=== PATIENT | female | born 1985 | race Caucasian/White ===

== ENCOUNTER 2016-07-30 14:33 | Emergency (ER) | payer OTHER ==
[~2016-07-30] VITALS: Ht 170.2 cm; Wt 100.0 kg
[~2016-07-30 14:33] MED LIST: AMOX875T PO
[2016-07-30] MEDS ORDERED: IBUPROFEN 800 MG TAB PO ONE (16:30)
[2016-07-30] MEDS ORDERED: IBUP800T23 PO (16:32)
--- NOTE | 2016-07-30 16:32 | PD ---
HPI Chief Complaint: Injury Time Seen by Provider: 16:28 Travel History International Travel<30 days: No Contact w/Intl Traveler<30days: No Traveled to known affect area: No History of Present Illness HPI 31-year-old female presents to the emergency Department with complaint of left ankle pain for approximately 3 days now. She states that she stands at work a lot and the other day she twisted wrong injuring the back of her left ankle. She denies paresthesias, loss of sensation, decreased range of motion, decreased strength to the affected extremity. Has been ambulatory on the affected extremity. Has been icing the ankle with no relief of symptoms. She has not taken any medications to alleviate her symptoms. Denies fever, chills, nausea, vomiting. No known allergies. Denies significant past medical history. No other modifying factors or associated signs and symptoms. PFSH Past Medical History Cardiovascular Problems: Yes (PERICARDITIS) Diminished Hearing: No LMP: 06/23/16 : 0 Para: 0 Miscarriage: 0 : 0 Social History Alcohol Use: No Tobacco Use: No Substance Use: No Allergies-Medications (Allergen,Severity, Reaction): Coded Allergies: No Known Allergies (Verified , 07/30/16) Reported Meds & Prescriptions Reported Meds & Active Scripts Active Ibuprofen 800 Mg Tab 800 Mg PO Q6HR PRN Amoxil (Amoxicillin) 875 Mg Tab 875 Mg PO BID 10 Days Review of Systems Except as stated in HPI: all other systems reviewed are Neg Physical Exam Narrative GENERAL: Well-nourished, well-developed female patient, in no acute distress SKIN: Warm and dry. HEAD: Atraumatic. Normocephalic. EYES: Pupils equal and round. No scleral icterus. No injection or drainage. ENT: Mucosa pink and moist. Airway patent. NECK: Trachea midline. CARDIOVASCULAR: Regular rate. RESPIRATORY: No accessory muscle use. GASTROINTESTINAL: Rounded. MUSCULOSKELETAL: Left ankle with tenderness to the posterior aspect; ankle with minimal edema and without erythema or ecchymosis; no obvious deformity. Left lower extremity supple and non-tense with 2+ pedal pulse and sensory intact and without erythema or edema. No obvious deformities. No clubbing. No cyanosis. No edema. NEUROLOGICAL: Awake and alert. Oriented 3. No obvious cranial nerve deficits. Motor grossly within normal limits. Normal speech. PSYCHIATRIC: Appropriate mood and affect; insight and judgment normal. Data Data Last Documented VS Vital Signs Date Time Temp Pulse Resp B/P Pulse Ox O2 Delivery O2 Flow Rate FiO2 07/30/16 16:40 85 18 135/82 96 Room Air Orders Ankle, Complete ([id number]) (07/30/16 16:25) Ibuprofen (Motrin) (07/30/16 16:30) MDM Medical Decision Making Medical Screen Exam Complete: Yes Emergency Medical Condition: Yes Medical Record Reviewed: Yes Differential Diagnosis Ankle sprain, ankle fracture, ankle dislocation Narrative Course 31-year-old female with left ankle injury. Ibuprofen administered in the ER. Left ankle x-ray ordered. 1704: Left ankle x-ray concludes: Last 24 hours Impressions Ankle X-Ray 07/30/16 1625 Signed Impressions: Service Date/Time: Saturday, July 30, 2016 16:34 - CONCLUSION: 1. Mild, diffuse soft tissue prominence about the ankle. No fracture. 2. Small calcaneal spur at the Achilles attachment. Yemi Vazquez MD John bandage and crutches provided for support. Instructed patient to follow up with podiatry. Ibuprofen prescribed for home. Patient verbalizes understanding and agreement with treatment plan. Patient is medically cleared and stable for discharge. Discussed reasons to return to the emergency department. Instructed patient to follow up with primary care provider. Patient agrees with treatment plan. The patients vital signs are stable and the patient is stable for outpatient follow-up and treatment. Patient discharged home, stable and in no acute distress. Diagnosis Primary Impression: Left ankle sprain Qualified Code: S93.402A - Sprain of left ankle, unspecified ligament, initial encounter Additional Impression: Calcaneal spur Qualified Code: M77.32 - Calcaneal spur, left Referrals: International Marketing Intern Primary Care Physician Patient Instructions: Ankle Sprain (ED), Crutch Instructions (ED), General Instructions, Heel Spur (ED) Departure Forms: Tests/Procedures, Work Release Enter return to work date: Aug 01, 2016 Additional Instructions: Tylenol or ibuprofen as directed and as needed for pain and inflammation Rest, ice, compress, and elevate extremity to decrease pain and inflammation Ankle Brace for support Crutches for support Avoid aggravating activity; increase activity as tolerated Follow-up with primary care provider Follow-up with orthopedics as needed Return to the emergency department immediately with worsening symptoms Med/Other Pt SpecificInfo: Prescription(s) given Scripts Ibuprofen 800 Mg [id number] Mg PO Q6HR PRN (PAIN) #30 TAB Ref 0 Prov:Lea Jacobs 07/30/16 Disposition: 01 DISCHARGE HOME Condition: Stable Lea Jacobs Jul 30, 2016 16:32
[2016-07-30 16:40] VITALS: BP 135/82; PULSE 85; RESP 18; O2SAT 96
--- NOTE | 2016-07-30 16:52 | RADRPT ---
EXAM DATE/TIME: 07/30/2016 16:34 [facility] COMPARISON: No previous studies available for comparison. INDICATIONS : Left Ankle Pain after twisting injury, posterior aspect most painful. MEDICAL HISTORY : None. SURGICAL HISTORY : None. ENCOUNTER: Initial ACUITY: 3 days PAIN SCORE: 6/10 LOCATION: Left Ankle. FINDINGS: Three view exam was performed of the left ankle. The bony structures are in normal alignment. No ev idence of fracture or dislocation. Mild soft tissue prominence about the ankle. The ankle mortise is intact. No radiopaque foreign bodies are seen. Bony mineralization is normal. Small calcaneal spur at the Achilles attachment. CONCLUSION: 1. Mild, diffuse soft tissue prominence about the ankle. No fracture. 2. Small calcaneal spur at the Achilles attachment. Yemi Vazquez MD on July 30, 2016 at 16:47 Board Certified Radiologist. This report was verified electronically.
== END 2016-07-30 17:27 | disposition home or self-care (01) ==
LOC: NETRI 14:33
DX: S93.402A Sprain of unspecified ligament of left ankle, initial encounter (principal); M77.32 Calcaneal spur, left foot; X50.1XXA Overexertion from prolonged static or awkward postures, initial encounter; Y93.89 Activity, other specified; Y92.89 Other specified places as the place of occurrence of the external cause; Y99.0 Civilian activity done for income or pay
CPT/HCPCS: 73610; 99283; E0113; L1906

== ENCOUNTER 2016-12-19 19:44 | Inpatient (IN) | payer OTHER ==
[~2016-12-19] VITALS: Ht 170.2 cm; Wt 105.0 kg
[~2016-12-19 19:44] MED LIST changes: +IBUP800T23 PO
[2016-12-19 19:46] VITALS: BP 123/84; PULSE 127; RESP 18; TEMP 101.3; O2SAT 96
[2016-12-19] MEDS ORDERED: ZOFR4TAB PO (19:55)
[2016-12-19 20:10] VITALS: BP 157/90; PULSE 123; RESP 20; TEMP 103; O2SAT 98
[2016-12-19] MEDS ORDERED: ACETAMINOPHEN 325 MG TAB PO ONE (20:15)
[2016-12-19] MEDS ORDERED: ONDANSETRON HCL 4 MG/2 ML VIAL IV ONE (20:15)
[2016-12-19] MEDS ORDERED: SODIUM CHLOR 0.9% 1000 ML INJ 1,000 ML IV ONE ×3 (20:15→23:00)
--- NOTE | 2016-12-19 20:21 | PD ---
HPI Chief Complaint: GI Complaint Time Seen by Provider: 20:03 Travel History International Travel<30 days: No Contact w/Intl Traveler<30days: No Traveled to known affect area: No History of Present Illness HPI The patient is a 31 year old female who presents to the [facility] emergency department with a history of abdominal pain that she reports began 2 weeks ago and was persistent for a week and then seemed to go away up until yesterday when it recurred. She reports that last week she was seen at [facility] [place]. No laboratory studies were done, however the patient was treated with nausea medication. She reports that she did restart this yesterday. She reports that the pain as an aching sensation in the left lower quadrant of the abdomen. She reports that it has been associated with nausea for the last 2 weeks and vomiting that began yesterday. She reports that she's also had intermittent diarrhea for the last 2 weeks. She reports that she had 1 episode of vomiting yesterday and one episode of vomiting today. She reports that she's had diarrhea approximately 4 times per day. She reports that prior to this beginning she did have a clear to milky vaginal discharge that lasted for a day. She denies having a pelvic examination done at the other facility. She reports that she has had an intermittent fever since yesterday. She has not actually checked her temperature and is unsure how high it was right on arrival, however on arrival back to her emergency department that her temp is 103 orally. She denies having any dysuria, urinary frequency, urinary urgency. On review of systems, the patient denies any recent cough, congestion, neck pain, chest pain, shortness of breath, or neurologic symptoms. The patient reports that multiple coworkers have been sick with a "stomach bug,". She denies any foreign travel, antibiotic use over the last 3 months, or unusual food intake. She denies having any blood in her stool or mucus in her stool. LMP: 2 weeks ago. [facility] Past Medical History Narrative Medical The patient's past medical history is significant for pericarditis. Medical History: Denies Significant Hx Cardiovascular Problems: Yes (PERICARDITIS) Diminished Hearing: No Immunizations Current: Yes ?: Unknown : 0 Para: 0 Miscarriage: 0 : 0 Past Surgical History Narrative Surgical The patient's past surgical history is reportedly none. Surgical History: No Previous Surgery Social History Alcohol Use: No Tobacco Use: No Substance Use: No Allergies-Medications (Allergen,Severity, Reaction): Coded Allergies: No Known Allergies (Verified , 12/19/16) Reported Meds & Prescriptions Reported Meds & Active Scripts Active Review of Systems Except as stated in HPI: all other systems reviewed are Neg General / Constitutional: Positive: Fever Eyes: No: Visual changes HENT: No: Headaches, Rhinorrhea, Congestion, Neck Pain Cardiovascular: No: Chest Pain or Discomfort Respiratory: No: Shortness of Breath Gastrointestinal: Positive: Nausea, Vomiting, Diarrhea, Abdominal Pain, Changes in Bowel Habits, No: Hematemesis, Indigestion, Loss of Appetite Genitourinary: Positive: Discharge, No: Urgency, Frequency, Dysuria Musculoskeletal: Positive: Myalgias, No: Pain Skin: No Rash Neurologic: No: Weakness, Focal Abnormalities, Change in Mentation, Slurred Speech, Sensory Disturbance Psychiatric: No: Depression Endocrine: No: Polydipsia Hematologic/Lymphatic: No: Easy Bruising Physical Exam Narrative General: The patient is a well-developed well-nourished female in no acute distress. Head and Neck exam: Head is normocephalic atraumatic. Eyes: EOMI, pupils are equal round and reactive to light. Nose: Midline septum with pink mucous membranes Mouth: Dentition unremarkable. Moist mucus membranes. Posterior oropharynx is not erythematous. No tonsillar hypertrophy. Uvula midline. Airway patent. Neck: No palpable lymphadenopathy. No nuchal rigidity. No thyromegaly. Cardiovascular: Sinus tachycardia in the 120s without murmurs, gallops, or rubs. No pulse deficit to the extremities and simultaneous auscultation and palpation of the radial artery. Lungs: Clear to auscultation bilaterally. No wheezes, rhonchi, or rales. Abdomen: Soft, with tenderness on palpation of the suprapubic area and left lower quadrant of the abdomen. No other tenderness on palpation of the other quadrants of the abdomen. No guarding, rebound, or rigidity. Normal bowel sounds are audible. No tenderness on palpation of McBurney's point. Negative [place] sign. Extremities: No clubbing, cyanosis, or edema. 2+ pulses in all 4 extremities. No calf tenderness on palpation. Back: No costovertebral angle tenderness to palpation. Neurologic Exam: Grossly nonfocal. Skin Exam: No rash noted. Intact skin that is warm and dry. Gynecologic exam: The patient was placed in the dorsal lithotomy position. Her external genitalia were examined. She had no evidence of rash or lesions. The speculum was placed into her vagina and the cervix was identified. She has a clear to yellow vaginal discharge noted with an odor. She has cervical friability noted. On Bimanual exam: she has no cervical motion tenderness. She has left adnexal tenderness on palpation. No uterine tenderness or enlargement noted on palpation. Data Data Last Documented VS Vital Signs Date Time Temp Pulse Resp B/P Pulse Ox O2 Delivery O2 Flow Rate FiO2 12/19/16 21:17 100.9 105 20 98 Room Air 12/19/16 20:10 157/90 Orders Complete Blood Count With Diff (12/19/16 20:12) Comprehensive Metabolic Panel (12/19/16 20:12) Blood Culture (12/19/16 20:12) C-Reactive Protein (Crp) (12/19/16 20:12) Lipase (12/19/16 20:12) Urinalysis - C+S If Indicated (12/19/16 20:12) Magnesium (Mg) (12/19/16 20:12) Chest, Single Ap (12/19/16 20:12) Ct Abd/Pel W Iv Contrast(Rout) (12/19/16 20:12) Iv Access Insert/Monitor (12/19/16 20:12) Ecg Monitoring (12/19/16 20:12) Oximetry (12/19/16 20:12) Ed Urine Pregnancytest Poc (12/19/16 20:12) Lactic Acid Sepsis Protocol (12/19/16 20:12) Sodium Chlor 0.9% 1000 Ml Inj (Ns 1000 M (12/19/16 20:15) Ondansetron Inj (Zofran Inj) (12/19/16 20:15) Acetaminophen (Tylenol) (12/19/16 20:15) Gc And Chlamydia Pcr (12/19/16 20:15) Wet Prep Profile (12/19/16 20:15) Ceftriaxone Inj (Rocephin Inj) (12/19/16 21:15) Azithromycin Powd Pack (Zithromax Powd P (12/19/16 21:15) Sodium Chlor 0.9% 1000 Ml Inj (Ns 1000 M (12/19/16 21:15) Oral Rehydration (12/19/16 21:10) Potassium Chloride Eff (K-Lyte Cl Eff) (12/19/16 21:45) Iohexol 350 Inj (Omnipaque 350 Inj) (12/19/16 21:49) Us Pelvis Comp [employer]or/Non-Preg (12/19/16 22:49) Doxycycline Inj (Vibramycin Inj) (12/19/16 23:00) Ampicillin-Sulbactam Inj (Unasyn Inj) (12/19/16 23:00) Sodium Chlor 0.9% 1000 Ml Inj (Ns 1000 M (12/19/16 23:00) Admit Order (Ed Use Only) (12/19/16 23:15) Labs Laboratory Tests Test 12/19/16 12/19/16 20:30 21:00 White Blood Count 25.9 TH/MM3 Red Blood Count 4.04 MIL/MM3 Hemoglobin 12.2 GM/DL Hematocrit 36.9 % Mean Corpuscular Volume 91.5 FL Mean Corpuscular Hemoglobin 30.3 PG Mean Corpuscular Hemoglobin 33.1 % Concent Red Cell Distribution Width 14.2 % Platelet Count 488 TH/MM3 Mean Platelet Volume 8.2 FL Neutrophils (%) (Auto) 82.4 % Lymphocytes (%) (Auto) 11.3 % Monocytes (%) (Auto) 5.7 % Eosinophils (%) (Auto) 0.1 % Basophils (%) (Auto) 0.5 % Neutrophils # (Auto) 21.4 TH/MM3 Lymphocytes # (Auto) 2.9 TH/MM3 Monocytes # (Auto) 1.5 TH/MM3 Eosinophils # (Auto) 0.0 TH/MM3 Basophils # (Auto) 0.1 TH/MM3 CBC Comment DIFF FINAL Differential Comment Sodium Level 133 MEQ/L Potassium Level 3.0 MEQ/L Chloride Level 97 MEQ/L Carbon Dioxide Level 24.9 MEQ/L Anion Gap 11 MEQ/L Blood Urea Nitrogen 10 MG/DL Creatinine 1.41 MG/DL Estimat Glomerular Filtration 43 ML/MIN Rate Random Glucose 108 MG/DL Lactic Acid Level 2.1 mmol/L Calcium Level 8.9 MG/DL Magnesium Level 2.1 MG/DL Total Bilirubin 1.2 MG/DL Aspartate Amino Transf 11 U/L (AST/SGOT) Alanine Aminotransferase 12 U/L (ALT/SGPT) Alkaline Phosphatase 72 U/L C-Reactive Protein 36.00 MG/DL Total Protein 9.1 GM/DL Albumin 3.5 GM/DL Lipase 49 U/L Clue Cells (Wet Prep) NONE SEEN Vaginal Trichomonas (Wet Prep) NONE SEEN Vaginal Yeast (Wet Prep) NONE SEEN MDM Medical Decision Making Medical Screen Exam Complete: Yes Emergency Medical Condition: Yes Medical Record Reviewed: Yes Interpretation(s) Last Impressions Chest X-Ray 12/19/162011 Signed Impressions: Service Date/Time: Monday, December 19, 2016 20:09 - CONCLUSION: Low lung volumes with mild left lower lung zone atelectasis. Arturo Maldonado MD Abdomen/Pelvis CT 12/19/162011 Signed Impressions: Service Date/Time: Monday, December 19, 2016 21:45 - CONCLUSION: 1. Heterogeneous enlarged left ovary with severe surrounding inflammatory change. Differential diagnosis includes ovarian torsion and infection with tubo- ovarian abscess. This finding could be further evaluated with pelvic ultrasound. 2. Diffuse small bowel distention without transition point likely representing ileus. 3. Hepatic steatosis. 4. Small amount of ascites. Arturo Maldonado MD Differential Diagnosis Pyelonephritis, versus colitis, versus diverticulitis, versus gastroenteritis, versus pelvic inflammatory disease Narrative Course During the course of the patients emergency department visit, the patients history, examination, and differential diagnosis were reviewed with the patient. The patient had IV access obtained and blood work sent for analysis. The patient was placed on a postal support employee with oximetry and blood pressure monitoring. A pelvic examination will be done. The patient was initially provided saline 1 L IV fluid bolus, Zofran 4 mg IV, Tylenol 650 by mouth 1. The patients laboratory studies were reviewed and remarkable for a white count of 25.9, hemoglobin 12.2, platelets 488, neutrophils 82.4. CMP is remarkable for sodium of 133, potassium 3.0 which was supplemented orally, chloride 97, creatinine 1.41, glucose 108, total bilirubin 1.2, AST 11, C-reactive protein 36 , total protein 9.1, lipase 49, lactic acid 2.1, wet prep is negative. Given the patient's findings on her pelvic examination the patient was given Rocephin 1 g IV, Zithromax 1 g by mouth. A wet prep and GC and chlamydia were sent. Radiology studies were reviewed and remarkable for a chest x-ray that shows low lung volumes with mild left lower lung zone atelectasis. CT scan of the abdomen and pelvis shows heterogeneous enlarged left ovary with severe surrounding inflammatory change, differential diagnosis includes ovarian torsion an infection with tubo-ovarian abscess. These findings could be further evaluated with pelvic ultrasound. Diffuse small bowel distention without transition point likely representing ileus, hepatic steatosis, small amount of ascites. An ultrasound was ordered to further evaluate the pelvis. The patient was placed on Unasyn and doxycycline IV. Discussed the patient's case with the [facility] hospitalist, Dr. Grimes. He explained that he was concerned that the patient should be admitted to the intensive care unit. A call was placed out to the film vault supervisor regarding this patient's case. I spoke to recommended that the patient be admitted to the hospitalist service on a medical bed as her heart rate has improved with reduction of her temperature and IV fluid administration and she has not been hypotensive. [facility] He did agree to admit the patient for further evaluation and treatment at this time. The patients results were discussed with the patient, including the plan of care. I explained that further testing and/ or monitoring is indicated based on the patients history, examination, and/ or laboratory findings. Therefore, I recommended admission for additional evaluation. The patient expressed understanding and was agreeable with this plan. The patient was admitted to the hospital in guarded condition and sent to a bed under the [facility]. Critical Care Narrative Aggregate critical care time was 33 minutes. Time to perform other separately billable procedures was not included in the critical care time. My time did not include minutes spent treating any other patients simultaneously or on activities that did not directly contribute to the patient's treatment. The services I provided to this patient were to treat and/or prevent clinically significant deterioration that could result in: Cardiovascular collapse, versus respiratory failure from fluid resuscitation I provided critical care services requiring my management, as noted below: Chart data review, documentation time, medication orders and management, vital sign assessments/reviewing monitor data, ordering and reviewing lab tests, ordering and interpreting/reviewing x-rays and diagnostic studies, care of the patient and discussion of the patient with the admitting physicians. Sepsis Criteria SIRS Criteria (2 or more): Temp > 100.9 or < 96.8, Heart rate over 90, WBC > 96669, < 4000 or > 10% bands Sepsis Criteria (SIRS+source): Infect source susp/known Severe Sepsis (+one): Lactate >2 Criteria Outcome: Meets SIRS criteria, Meets sepsis criteria, Meets severe sepsis criteria Physician Communication Physician Communication The patient's case was discussed with the [facility] as well as the film vault supervisor. Please see the ED course for further information regarding this. Diagnosis Primary Impression: Pelvic infection in female Additional Impression: Sepsis Qualified Code: A41.9 - Sepsis, due to unspecified organism Admitting Information Admitting Physician Requests: Admit Katia Landis MD Dec 19, 2016 20:21
[2016-12-19 20:24] VITALS: O2SAT 98
--- NOTE | 2016-12-19 20:40 | RADRPT ---
EXAM DATE/TIME: 12/19/2016 20:09 [facility] COMPARISON: No previous studies available for comparison. INDICATIONS : Left sided abdominal pain and fever. MEDICAL HISTORY : Pericarditis. SURGICAL HISTORY : None. ENCOUNTER: Initial ACUITY: 2 weeks PAIN SCORE: 4/10 LOCATION: Left abdomen. FINDINGS: Single AP view of the chest. Low lung volumes. Mild atelectasis at the left lung base. The lungs are otherwise clear. Cardiomediastinal silhouette within normal limits. No evidence of pleural effusion o r pneumothorax. CONCLUSION: Low lung volumes with mild left lower lung zone atelectasis. Arturo Maldonado MD on December 19, 2016 at 20:38 Board Certified Radiologist. This report was verified electronically.
[2016-12-19 20:49] LABS: AUTOMATED NEUTROPHIL # 21.4 TH/MM3 (1.8-7.7); BASOPHIL # 0.1 TH/MM3 (0-0.2); BASOPHIL % 0.5 % (0.0-2.0); EOSINOPHIL % 0.1 % (0.0-4.0); HEMATOCRIT 36.9 % (35.0-46.0); HEMO FLAGS DIFF FINAL; LYMPH % 11.3 % (9.0-44.0); LYMPHOCYTE # 2.9 TH/MM3 (1.0-4.8); MEAN CELL VOLUME 91.5 FL (80.0-100.0); MEAN CORPUSCULAR HEMOGLOBIN 30.3 PG (27.0-34.0); MEAN CORPUSCULAR HGB CONC 33.1 % (32.0-36.0); MONO % 5.7 % (0.0-8.0); NEUT % 82.4 % (16.0-70.0); PLATELET COUNT 488 TH/MM3 (150-450); RED BLOOD COUNT 4.04 MIL/MM3 (4.00-5.30); RED CELL DISTRIBUTION WIDTH 14.2 % (11.6-17.2); WHITE BLOOD COUNT 25.9 TH/MM3 (4.0-11.0)
[2016-12-19] MEDS ORDERED: cefTRIAXone INJ 1,000 MG in SODIUM CHLORIDE 0.9% INJ 100 ML IV ONE (21:15)
[2016-12-19] MEDS ORDERED: AZITHROMYCIN PWD FOR SUSP 1 GM PACKET PO ONE (21:15)
[2016-12-19 21:17] VITALS: PULSE 105; RESP 20; TEMP 100.9; O2SAT 98
[2016-12-19 21:28] LABS: ANION GAP 11 MEQ/L (5-15); AST (GOT) 11 U/L (15-37); BICARBONATE 24.9 MEQ/L (21.0-32.0); BLOOD UREA NITROGEN 10 MG/DL (7-18); CHLORIDE 97 MEQ/L (98-107); GLOMERULAR FILTRATION RATE 43 ML/MIN (>89); MAGNESIUM 2.1 MG/DL (1.5-2.5); SODIUM (NA) 133 MEQ/L (136-145)
[2016-12-19 21:37] LABS: ALKALINE PHOSPHATASE 72 U/L (45-117); ALT (GPT) 12 U/L (10-53); TOTAL BILIRUBIN ADULT 1.2 MG/DL (0.2-1.0)
[2016-12-19] MEDS ORDERED: POTASSIUM CHLORIDE 25 MEQ EFFERVESCENT TAB PO ONE (21:45)
[2016-12-19] MEDS ORDERED: IOHEXOL 350 MG/ML 10 ML VIAL (for RAD DIAG) IV ONE (21:49)
--- NOTE | 2016-12-19 22:06 | RADRPT ---
EXAM DATE/TIME: 12/19/2016 21:45 [facility] COMPARISON: No previous studies available for comparison. INDICATIONS : Left sided abdominal pain with nausea, vomiting, diarrhea and fever x1 week. IV CONTRAST: 100 cc Omnipaque 350 (iohexol) IV ORAL CONTRAST: No oral contrast ingested. RADIATION DOSE: 17.56 CTDIvol (mGy) MEDICAL HISTORY : Cardiovascular disease. SURGICAL HISTORY : None. ENCOUNTER: Initial ACUITY: 1 week PAIN SCALE: 9/10 LOCATION: Left abdomen TECHNIQUE: Volumetric scanning of the abdomen and pelvis was performed. Using automated exposure control and ad justment of the mA and/or kV according to patient size, radiation dose was kept as low as reasonably achievable to obtain optimal diagnostic quality images. DICOM format image data is available electro nically for review and comparison. FINDINGS: LOWER LUNGS: The visualized lower lungs are clear. LIVER: Diffuse hypodensity of the liver indicating diffuse fatty infiltration. No focal mass identified. Gal lbladder within normal limits. SPLEEN: Normal size without lesion. PANCREAS: KIDNEYS: Normal in size and shape. There is no mass, stone or hydronephrosis. ADRENAL GLANDS: Within normal limits. VASCULAR: There is no aortic aneurysm. BOWEL/MESENTERY: There is diffuse distention of small bowel and stomach with multiple air-fluid levels. No transition point. Colon is decompressed. Appendix within normal limits. ABDOMINAL WALL: Within normal limits. RETROPERITONEUM: There is no lymphadenopathy. BLADDER: Diffuse mild urinary bladder wall thickening. REPRODUCTIVE: Heterogeneous enlarged mixed density left adnexal mass likely representing the left ovary, measuring 6.0 x 4.6 x 3.9 cm. Severe surrounding stranding/haziness of the pelvis and left lower quadrant of th e abdomen centered at the left adnexal region small amount of free fluid adjacent to liver. INGUINAL: There is no lymphadenopathy or hernia. MUSCULOSKELETAL: Within normal limits for patient age. CONCLUSION: 1. Heterogeneous enlarged left ovary with severe surrounding inflammatory change. Differential diagno sis includes ovarian torsion and infection with tubo-ovarian abscess. This finding could be further e valuated with pelvic ultrasound. 2. Diffuse small bowel distention without transition point likely representing ileus. 3. Hepatic steatosis. 4. Small amount of ascites. Arturo Maldonado MD on December 19, 2016 at 21:54 Board Certified Radiologist. This report was verified electronically.
[2016-12-19 22:40] LABS: LACTIC ACID GHOST NOT REPORTABLE
[2016-12-19] MEDS ORDERED: DOXYCYCLINE INJ 100 MG in SODIUM CHLORIDE 0.9% INJ 100 ML IV ONE (23:00)
[2016-12-19] MEDS ORDERED: AMPICILLIN-SULBACTAM INJ 3 GM in SODIUM CHLORIDE 0.9% INJ 100 ML IV ONE (23:00)
--- NOTE | 2016-12-19 23:30 | HHI.HP ---
HPI Service [facility] Hospitalists Primary Care Physician Kesha Andrade MD Admission Diagnosis Pelvic infection, sepsis Chief Complaint: progressive abdominal pain fever for 2 weeks Travel History International Travel<30 Days: No Contact w/Intl Traveler <30 Da: No Traveled to Known Affected Are: No Sepsis Criteria SIRS Criteria (2 or more): Temp > 100.9 or < 96.8, Heart rate over 90, WBC > 53917, < 4000 or > 10% bands Severe Sepsis (+one): Lactate >2 History of Present Illness The patient is a 31 year old female who presents to the [facility] emergency department with a history of abdominal pain that she reports began 2 weeks ago and was persistent for a week and then seemed to go away up until yesterday when it recurred. She reports that last week she was seen at [facility] [place]. No laboratory studies were done, however the patient was treated with nausea medication. She reports that she did restart this yesterday. She reports that the pain as an aching sensation in the left lower quadrant of the abdomen. She reports that it has been associated with nausea for the last 2 weeks and vomiting that began yesterday. She reports that she's also had intermittent diarrhea for the last 2 weeks. She reports that she had 1 episode of vomiting yesterday and one episode of vomiting today. She reports that she's had diarrhea approximately 4 times per day. She reports that prior to this beginning she did have a clear to milky vaginal discharge that lasted for a day. She denies having a pelvic examination done at the other facility. She reports that she has had an intermittent fever since yesterday. She has not actually checked her temperature and is unsure how high it was right on arrival, however on arrival back to emergency department that her temp is 103 orally. She denies having any dysuria, urinary frequency, urinary urgency. On review of systems, the patient denies any recent cough, congestion, neck pain, chest pain, shortness of breath, or neurologic symptoms. The patient reports that multiple coworkers have been sick with a "stomach bug,". She denies any foreign travel, antibiotic use over the last 3 months, or unusual food intake. She denies having any blood in her stool or mucus in her stool. In er had CT abdomen suggesting pelvic infection with possible abscess and does have increased WBC count will admit for IV antibiotics and CARGO SERVICE AGENT evaluation . Obtain ultrasound. LMP: 2 weeks ago. Review of Systems Constitutional: COMPLAINS OF: Fever Gastrointestinal: COMPLAINS OF: Abdominal pain, Nausea, Vomiting Past Family Social History Past Medical History pericarditis Past Surgical History none Reported Medications motrin zofran Allergies: Coded Allergies: No Known Allergies (Verified , 12/19/16) Physical Exam Vital Signs Vital Signs Date Time Temp Pulse Resp B/P Pulse Ox O2 Delivery O2 Flow Rate FiO2 12/19/16 21:17 100.9 105 20 98 Room Air 12/19/16 20:24 98 Room Air 12/19/16 20:10 103.0 123 20 157/90 98 Room Air 12/19/16 19:46 101.3 127 18 123/84 96 Room Air Physical Exam GENERAL: This is a well-nourished, well-developed patient, in no apparent distress. SKIN: No rashes, ecchymoses or lesions. Cool and dry. HEAD: Atraumatic. Normocephalic. No temporal or scalp tenderness. EYES: Pupils equal round and reactive. Extraocular motions intact. No scleral icterus. No injection or drainage. ENT: Nose without bleeding, purulent drainage or septal hematoma. Throat without erythema, tonsillar hypertrophy or exudate. Uvula midline. Airway patent. NECK: Trachea midline. No JVD or lymphadenopathy. Supple, nontender, no meningeal signs. CARDIOVASCULAR: Regular rate and rhythm without murmurs, gallops, or rubs. RESPIRATORY: Clear to auscultation. Breath sounds equal bilaterally. No wheezes , rales, or rhonchi. GASTROINTESTINAL: Abdomen soft, tender, mid and left lower quadrant. No hepato- splenomegaly, or palpable masses. guarding no rebound MUSCULOSKELETAL: Extremities without clubbing, cyanosis, or edema. No joint tenderness, effusion, or edema noted. No calf tenderness. Negative Homans sign bilaterally. NEUROLOGICAL: Awake and alert. Cranial nerves II through XII intact. Motor and sensory grossly within normal limits. Five out of 5 muscle strength in all muscle groups. Normal speech. Laboratory Laboratory Tests Test 12/19/16 12/19/16 20:30 21:00 White Blood Count 25.9 Red Blood Count 4.04 Hemoglobin 12.2 Hematocrit 36.9 Mean Corpuscular Volume 91.5 Mean Corpuscular Hemoglobin 30.3 Mean Corpuscular Hemoglobin 33.1 Concent Red Cell Distribution Width 14.2 Platelet Count 488 Mean Platelet Volume 8.2 Neutrophils (%) (Auto) 82.4 Lymphocytes (%) (Auto) 11.3 Monocytes (%) (Auto) 5.7 Eosinophils (%) (Auto) 0.1 Basophils (%) (Auto) 0.5 Neutrophils # (Auto) 21.4 Lymphocytes # (Auto) 2.9 Monocytes # (Auto) 1.5 Eosinophils # (Auto) 0.0 Basophils # (Auto) 0.1 CBC Comment DIFF FINAL Differential Comment Sodium Level 133 Potassium Level 3.0 Chloride Level 97 Carbon Dioxide Level 24.9 Anion Gap 11 Blood Urea Nitrogen 10 Creatinine 1.41 Estimat Glomerular Filtration 43 Rate Random Glucose 108 Lactic Acid Level 2.1 Calcium Level 8.9 Magnesium Level 2.1 Total Bilirubin 1.2 Aspartate Amino Transf 11 (AST/SGOT) Alanine Aminotransferase 12 (ALT/SGPT) Alkaline Phosphatase 72 C-Reactive Protein 36.00 Total Protein 9.1 Albumin 3.5 Lipase 49 Clue Cells (Wet Prep) NONE SEEN Vaginal Trichomonas (Wet Prep) NONE SEEN Vaginal Yeast (Wet Prep) NONE SEEN Date/Time Procedure Status Source Growth 12/19/16 20:30 Aerobic Blood Culture Received Blood Peripheral Pending 12/19/16 20:30 Anaerobic Blood Culture Received Blood Peripheral Pending Result Diagram: 12/19/16202912/19/162029 Imaging Last 24 hours Impressions Chest X-Ray 12/19/162011 Signed Impressions: Service Date/Time: Monday, December 19, 2016 20:09 - CONCLUSION: Low lung volumes with mild left lower lung zone atelectasis. Arturo Maldonado MD Abdomen/Pelvis CT 12/19/162011 Signed Impressions: Service Date/Time: Monday, December 19, 2016 21:45 - CONCLUSION: 1. Heterogeneous enlarged left ovary with severe surrounding inflammatory change. Differential diagnosis includes ovarian torsion and infection with tubo- ovarian abscess. This finding could be further evaluated with pelvic ultrasound. 2. Diffuse small bowel distention without transition point likely representing ileus. 3. Hepatic steatosis. 4. Small amount of ascites. Arturo Maldonado MD Course in er had pelvic exam- The patient was placed in the dorsal lithotomy position. Her external genitalia were examined. She had no evidence of rash or lesions. The speculum was placed into her vagina and the cervix was identified. She has a clear to yellow vaginal discharge noted with an odor. She has cervical friability noted. On Bimanual exam: she has no cervical motion tenderness. She has left adnexal tenderness on palpation. No uterine tenderness or enlargement noted on palpation. Assessment and Plan Problem List: (1) Sepsis Status: Acute Plan: blood cultures obtained and started on unasyn IV and IV doxycline IV fluid (2) Pelvic infection in female Status: Acute Plan: await ultrasound and consult [employer] SERVICE AGENT Assessment and Plan further plan as per ultrasound Code Status full Discussed Condition With patient Physician Certification 2 Midnight Certification Type: Admission for Inpatient Services Order for Inpatient Services The services are ordered in accordance with Medicare regulations or non- Medicare payer requirements, as applicable. In the case of services not specified as inpatient-only, they are appropriately provided as inpatient services in accordance with the 2-midnight benchmark. Estimated LOS (days): 3 3 days is the estimated time the patient will need to remain in the hospital, assuming treatment plan goals are met and no additional complications. Post-Hospital Plan: Not yet determined Lauri Hodge MD Dec 19, 2016 23:30
[2016-12-19] MEDS ORDERED: SODIUM CHLOR 0.45% 1000 ML INJ 1,000 ML IV SCH (23:33)
[2016-12-19] MEDS ORDERED: SENNOSIDES 8.6 MG TAB PO PRN (23:45)
[2016-12-19] MEDS ORDERED: BISACODYL 10 MG SUPP RECTAL PRN (23:45)
[2016-12-19] MEDS ORDERED: SODIUM CHLORIDE 0.9% FLUSH 10 ML FLUSH IV FLUSH PRN (23:45)
[2016-12-19] MEDS ORDERED: LACTULOSE SYRUP 20 GM/30 ML CUP PO PRN (23:45)
[2016-12-19] MEDS ORDERED: NALOXONE HCL 0.4 MG/ML AMP IV PRN (23:45)
[2016-12-19] MEDS ORDERED: MAGNESIUM HYDROXIDE SUSP 30 ML CUP PO PRN (23:45)
[2016-12-20 00:07] LABS: CHLAMYDIA PCR NOT DETECTED (NOT DETECT); NEISSERIA PCR DETECTED (NOT DETECT)
[2016-12-20 01:11] LABS: BACTERIA, URINE RARE /hpf; BLOOD, URINE MOD (NEG); COMMENT (UR) CULTURE INDICATED; CULTURE IF INDICATED CULTURE INDICATED; GLUCOSE,URINE NEG (NEG); KETONE, URINE NEG (NEG); NITRITE,URINE NEG (NEG); PH, URINE 5.5 (5.0-8.5); SQUAMOUS EPITHELIAL CELL URINE 1 /hpf (0-5); URINE COLOR YELLOW (YELLW/STRAW)
[2016-12-20 01:32] VITALS: BP 108/67; PULSE 74; RESP 19; TEMP 97.3; O2SAT 98
--- NOTE | 2016-12-20 01:36 | RADRPT ---
EXAM DATE/TIME: 12/20/2016 00:09 [place] COMPARISON: No previous studies available for comparison. INDICATIONS : Pelvic pain. MEDICAL HISTORY : Pericarditis. Nausea/vomiting. Left pelvic pain. SURGICAL HISTORY : None. ENCOUNTER: Initial ACUITY: 2 weeks PAIN SCORE: 9/10 LOCATION: Bilateral pelvis MEASUREMENTS: LEFT OVARY: 3.2 x 2.0 x 1.6 cm UTERUS: 6.2 x 3.4 x 2.0 cm ENDOMETRIAL STRIPE: 5 mm RIGHT OVARY: 2.6 x 1.9 x 1.4 cm FINDINGS: UTERUS: The myometrium has homogeneous echotexture without mass. RIGHT OVARY: Ovary contains no mass or significant cystic lesion. LEFT OVARY: Ovary contains no mass or significant cystic lesion. In the left adnexa, medial to the ovary, there i s an irregular shaped mildly hypoechoic non-shadowing area measuring 6.2 x 3.3 cm. No increased flow seen on color Doppler. This of uncertain significance. MISCELLANEOUS: There is a prominent amount of free fluid in the pelvis. In addition, there is an oval-shaped cystic area containing multiple thin internal septa in the region of the cul-de-sac measuring 2.4 x 3.6 x 1 .4 cm. No increased flow seen on color Doppler. CONCLUSION: 1. Significant amount of free fluid in the pelvis. 2. Cystic lesion in the cul-de-sac measuring up to 3.6 cm containing internal septa. 3. Low-density lesion without increased flow on color Doppler, probably cystic, in the left adnexa, s eparate from the ovary, measuring 6.2 x 4.6 cm. Geovanny Bolanos MD on December 20, 2016 at 1:29 Board Certified Radiologist. This report was verified electronically.
[2016-12-20] MEDS: HYDROmorphone HCL PF 1 MG/ML VIAL IV PRN ×3 (01:50→21:44)
[2016-12-20] MEDS: AMPICILLIN-SULBACTAM INJ 3 GM in SODIUM CHLORIDE 0.9% INJ 100 ML IV SCH ×2 (05:04→11:24)
[2016-12-20] MEDS: ONDANSETRON HCL 4 MG/2 ML VIAL IVP PRN ×3 (05:08→20:06)
[2016-12-20 07:20] LABS: AUTOMATED NEUTROPHIL # 18.4 TH/MM3 (1.8-7.7); BASOPHIL # 0.1 TH/MM3 (0-0.2); BASOPHIL % 0.5 % (0.0-2.0); EOSINOPHIL % 0.1 % (0.0-4.0); HEMATOCRIT 31.5 % (35.0-46.0); HEMO FLAGS DIFF FINAL; LYMPH % 8.1 % (9.0-44.0); LYMPHOCYTE # 1.8 TH/MM3 (1.0-4.8); MEAN CELL VOLUME 91.3 FL (80.0-100.0); MEAN CORPUSCULAR HEMOGLOBIN 30.9 PG (27.0-34.0); MEAN CORPUSCULAR HGB CONC 33.8 % (32.0-36.0); MONO % 7.5 % (0.0-8.0); NEUT % 83.8 % (16.0-70.0); PLATELET COUNT 378 TH/MM3 (150-450); RED BLOOD COUNT 3.45 MIL/MM3 (4.00-5.30); RED CELL DISTRIBUTION WIDTH 14.2 % (11.6-17.2)
[2016-12-20 07:36] LABS: ALT (GPT) 9 U/L (10-53); ANION GAP 8 MEQ/L (5-15); AST (GOT) 10 U/L (15-37); BICARBONATE 26.2 MEQ/L (21.0-32.0); BLOOD UREA NITROGEN 10 MG/DL (7-18); CHLORIDE 101 MEQ/L (98-107); GLOMERULAR FILTRATION RATE 63 ML/MIN (>89); POTASSIUM 3.3 MEQ/L (3.5-5.1); SODIUM (NA) 135 MEQ/L (136-145)
[2016-12-20 07:41] LABS: ALKALINE PHOSPHATASE 67 U/L (45-117); TOTAL BILIRUBIN ADULT 0.7 MG/DL (0.2-1.0)
[2016-12-20 08:00] VITALS: BP 118/72; PULSE 100; RESP 17; TEMP 98.5; O2SAT 95
--- NOTE | 2016-12-20 08:45 | PD.CONS ---
HPI Chief Complaint Consult, pelvic infection with sepsis. Patient admitted with fever, abdominal pain, nausea vomiting, diarrhea. Date Seen: Dec 20, 2016 Time Seen: 08:36 Travel History International Travel<30 Days: No Contact w/Intl Traveler<30Days: No Known Affected Area: No History of Present Illness HPI 31-year-old P0 admitted for abdominal pain possible sepsis with fever and tachycardia. Patient was seen at an urgent care center when her symptoms first started approximately 8 days ago with diarrhea and pelvic pain. She was told she had a virus gastroenteritis and sent home but because of worsening symptoms , fever, and pelvic pain she were she reported back to the hospital. She was noted have an elevated white blood cell count, fever, mild abdominal distention with a CT scan that showed adnexal mass with possible tubo-ovarian abscess. Patient has never been in the past and wishes to achieve in the future. She notes that she started feeling hot proximally 48 hours ago but she never took or fever and she was febrile when she was admitted with a temperature of 103. Patient did meet sepsis protocol and was initially treated with Rocephin 1 g and doxycycline, she is now on Unasyn and doxycycline. Ultrasound performed after the CT scan agreed with results. Patient has not yet received 24 hours worth of IV antibiotic therapy. Nausea vomiting have improved and diarrhea has improved the patient continues to have abdominal pain and fever. Para: 0 : 1 History Past Medical History Narrative Medical Pericarditis Medical History: Denies Significant Hx Obstetric History Obstetric History Denies a history of chlamydia or gonorrhea Past Surgical History Surgical History: No Previous Surgery Family History Family History: Negative Social History Alcohol Use: No Tobacco Use: No Substance Abuse: No Allergies-Medications (Allergen,Severity, Reaction): Coded Allergies: No Known Allergies (Verified , 12/19/16) Review of Systems Except as stated in HPI: all other systems reviewed are Neg Gastrointestinal: Nausea, Vomiting, Diarrhea, Abdominal Pain Physical Exam Vital Signs Date Time Temp Pulse Resp B/P Pulse Ox O2 Delivery O2 Flow Rate FiO2 12/20/16 01:32 97.3 74 19 108/67 98 12/19/16 21:17 100.9 105 20 98 Room Air 12/19/16 20:24 98 Room Air 12/19/16 20:10 103.0 123 20 157/90 98 Room Air 12/19/16 19:46 101.3 127 18 123/84 96 Room Air Narrative GENERAL: Well-nourished, well-developed patient. SKIN: Warm and dry. HEAD: Normocephalic and atraumatic. EYES: No scleral icterus. No injection or drainage. ENT: No nasal drainage noted. Mucous membranes pink. Airway patent. NECK: Supple, trachea midline. No JVD. CARDIOVASCULAR: Regular rate and rhythm without murmurs, gallops, or rubs. RESPIRATORY: Breath sounds equal bilaterally. No accessory muscle use. ABDOMEN/GI: Abdomen soft, bowel sounds present but hypoactive, pain is noted in the pelvis and abdomen mostly in both lower quadrants with some guarding but no rebound. GENITOURINARY: See ED examination EXTREMITIES: No cyanosis or edema. BACK: Nontender without obvious deformity. No CVA tenderness. NEUROLOGICAL: Awake and alert. Motor and sensory grossly within normal limits. Five out of 5 muscle strength in all muscle groups. Normal speech. Data Data Orders Complete Blood Count With Diff (12/19/16 20:12) Comprehensive Metabolic Panel (12/19/16 20:12) Blood Culture (12/19/16 20:12) C-Reactive Protein (Crp) (12/19/16 20:12) Lipase (12/19/16 20:12) Urinalysis - C+S If Indicated (12/19/16 20:12) Magnesium (Mg) (12/19/16 20:12) Chest, Single Ap (12/19/16 20:12) Ct Abd/Pel W Iv Contrast(Rout) (12/19/16 20:12) Iv Access Insert/Monitor (12/19/16 20:12) Ecg Monitoring (12/19/16 20:12) Oximetry (12/19/16 20:12) Ed Urine Pregnancytest Poc (12/19/16 20:12) Lactic Acid Sepsis Protocol (12/19/16 20:12) Sodium Chlor 0.9% 1000 Ml Inj (Ns 1000 M (12/19/16 20:15) Ondansetron Inj (Zofran Inj) (12/19/16 20:15) Acetaminophen (Tylenol) (12/19/16 20:15) Gc And Chlamydia Pcr (12/19/16 20:15) Wet Prep Profile (12/19/16 20:15) Ceftriaxone Inj (Rocephin Inj) (12/19/16 21:15) Azithromycin Powd Pack (Zithromax Powd P (12/19/16 21:15) Sodium Chlor 0.9% 1000 Ml Inj (Ns 1000 M (12/19/16 21:15) Oral Rehydration (12/19/16 21:10) Potassium Chloride Eff (K-Lyte Cl Eff) (12/19/16 21:45) Iohexol 350 Inj (Omnipaque 350 Inj) (12/19/16 21:49) Doxycycline Inj (Vibramycin Inj) (12/19/16 23:00) Ampicillin-Sulbactam Inj (Unasyn Inj) (12/19/16 23:00) Sodium Chlor 0.9% 1000 Ml Inj (Ns 1000 M (12/19/16 23:00) Admit Order (Ed Use Only) (12/19/16 23:15) Complete Blood Count With Diff (12/20/16 06:00) Comprehensive Metabolic Panel (12/20/16 06:00) Admit To Inpatient (12/19/16 ) Vital Signs (Adult) Q4H (12/19/16 23:33) Activity Oob With Assistance (12/19/16 23:33) Drywaller / Telemetry .CONTINUOUS (12/19/16 23:33) Diet Npo (12/20/16 Breakfast) Sodium Chlor 0.45% 1000 Ml Inj (1/2 Ns 1 (12/19/16 23:33) Sodium Chloride 0.9% Flush (Ns Flush) (12/19/16 23:45) Sodium Chloride 0.9% Flush (Ns Flush) (12/20/16 09:00) Ondansetron Inj (Zofran Inj) (12/19/16 23:45) Hydromorphone Pf Inj (Dilaudid Pf Inj) (12/19/16 23:45) Naloxone Inj (Narcan Inj) (12/19/16 23:45) Docusate Sodium-Senna (Angella-Colace) (12/20/16 09:00) Magnesium Hydroxide Liq (Milk Of Magnesi (12/19/16 23:45) Sennosides (Senokot) (12/19/16 23:45) Bisacodyl Supp (Dulcolax Supp) (12/19/16 23:45) Lactulose Liq (Lactulose Liq) (12/19/16 23:45) Inpatient Certification (12/19/16 ) Consult Gynecology (12/19/16 ) Ampicillin-Sulbactam Inj (Unasyn Inj) (12/20/16 05:00) Doxycycline Inj (Vibramycin Inj) (12/20/16 12:00) (Hub Use Only)Inp Phy Cons/Ref (12/19/16 ) Us Pelvis Comp W Transvaginal (12/19/16 22:49) Urine Culture (12/20/16 00:45) Labs Last 24 hours Impressions Pelvis Ultrasound 12/19/169 Signed Impressions: Service Date/Time: Tuesday, December 20, 2016 00:09 - CONCLUSION: 1. Significant amount of free fluid in the pelvis. 2. Cystic lesion in the cul-de-sac measuring up to 3.6 cm containing internal septa. 3. Low-density lesion without increased flow on color Doppler, probably cystic, in the left adnexa, separate from the ovary, measuring 6.2 x 4.6 cm. Geovanny Bolanos MD Chest X-Ray 12/19/162011 Signed Impressions: Service Date/Time: Monday, December 19, 2016 20:09 - CONCLUSION: Low lung volumes with mild left lower lung zone atelectasis. Arturo Maldonado MD Abdomen/Pelvis CT 12/19/162011 Signed Impressions: Service Date/Time: Monday, December 19, 2016 21:45 - CONCLUSION: 1. Heterogeneous enlarged left ovary with severe surrounding inflammatory change. Differential diagnosis includes ovarian torsion and infection with tubo- ovarian abscess. This finding could be further evaluated with pelvic ultrasound. 2. Diffuse small bowel distention without transition point likely representing ileus. 3. Hepatic steatosis. 4. Small amount of ascites. Arturo Maldonado MD Laboratory Tests Test 12/19/16 12/19/16 12/20/16 12/20/16 20:30 21:00 00:45 01:05 Sodium Level 133 Potassium Level 3.0 Chloride Level 97 Carbon Dioxide Level 24.9 Anion Gap 11 Blood Urea Nitrogen 10 Creatinine 1.41 Estimat Glomerular Filtration 43 Rate Random Glucose 108 Lactic Acid Level 2.1 1.6 Calcium Level 8.9 Magnesium Level 2.1 Total Bilirubin 1.2 Aspartate Amino Transf 11 (AST/SGOT) Alanine Aminotransferase 12 (ALT/SGPT) Alkaline Phosphatase 72 C-Reactive Protein 36.00 Total Protein 9.1 Albumin 3.5 Lipase 49 White Blood Count 25.9 Red Blood Count 4.04 Hemoglobin 12.2 Hematocrit 36.9 Mean Corpuscular Volume 91.5 Mean Corpuscular Hemoglobin 30.3 Mean Corpuscular Hemoglobin 33.1 Concent Red Cell Distribution Width 14.2 Platelet Count 488 Mean Platelet Volume 8.2 Neutrophils (%) (Auto) 82.4 Lymphocytes (%) (Auto) 11.3 Monocytes (%) (Auto) 5.7 Eosinophils (%) (Auto) 0.1 Basophils (%) (Auto) 0.5 Neutrophils # (Auto) 21.4 Lymphocytes # (Auto) 2.9 Monocytes # (Auto) 1.5 Eosinophils # (Auto) 0.0 Basophils # (Auto) 0.1 CBC Comment DIFF FINAL Differential Comment Clue Cells (Wet Prep) NONE SEEN Vaginal Trichomonas (Wet Prep) NONE SEEN Vaginal Yeast (Wet Prep) NONE SEEN Chlamydia trachomatis DNA NOT DETECTED (PCR) Neisseria gonorrhoeae DNA DETECTED (PCR) Urine Color YELLOW Urine Turbidity CLEAR Urine pH 5.5 Urine Specific [place] GREATER THAN 1.050 Urine Protein 30 Urine Glucose (UA) NEG Urine Ketones NEG Urine Occult Blood MOD Urine Nitrite NEG Urine Bilirubin NEG Urine Urobilinogen LESS THAN 2.0 Urine Leukocyte Esterase SMALL Urine RBC 16 Urine WBC 31 Urine Squamous Epithelial 1 Cells Urine Bacteria RARE Microscopic Urinalysis Comment CULTURE INDICATED Test 12/20/16 06:15 White Blood Count 22.0 Red Blood Count 3.45 Hemoglobin 10.6 Hematocrit 31.5 Mean Corpuscular Volume 91.3 Mean Corpuscular Hemoglobin 30.9 Mean Corpuscular Hemoglobin 33.8 Concent Red Cell Distribution Width 14.2 Platelet Count 378 Mean Platelet Volume 8.8 Neutrophils (%) (Auto) 83.8 Lymphocytes (%) (Auto) 8.1 Monocytes (%) (Auto) 7.5 Eosinophils (%) (Auto) 0.1 Basophils (%) (Auto) 0.5 Neutrophils # (Auto) 18.4 Lymphocytes # (Auto) 1.8 Monocytes # (Auto) 1.6 Eosinophils # (Auto) 0.0 Basophils # (Auto) 0.1 CBC Comment DIFF FINAL Differential Comment Sodium Level 135 Potassium Level 3.3 Chloride Level 101 Carbon Dioxide Level 26.2 Anion Gap 8 Blood Urea Nitrogen 10 Creatinine 1.01 Estimat Glomerular Filtration 63 Rate Random Glucose 96 Calcium Level 8.4 Total Bilirubin 0.7 Aspartate Amino Transf 10 (AST/SGOT) Alanine Aminotransferase 9 (ALT/SGPT) Alkaline Phosphatase 67 Total Protein 7.9 Albumin 2.9 Date/Time Procedure Status Source Growth 12/20/16 00:45 Urine Culture Received Urine Random Urine Pending 12/19/16 20:30 Aerobic Blood Culture Received Blood Peripheral Pending 12/19/16 20:30 Anaerobic Blood Culture Received Blood Peripheral Pending [facility] Medical Record Reviewed: Yes Plan 31-year-old nulliparous patient with PID/tubo-ovarian abscess who has been symptomatic for greater than a week at home and was admitted with fever and initially placed on Rocephin and Doxy with a changed to Unasyn and doxycycline for treatment Recommendations: #1 patient will need a minimum of 48 hours of IV antibiotics. Recommendations are cefoxitin and doxycycline although she does seem to be responding to present antibiotic therapy and that she is now afebrile. Patient has not yet received 24 hours of IV antibiotics and we will be assessing daily for improvement. #2 this patient is nulliparous and desires to preserve her fertility. Would consider IR intervention for drainage if applicable although I have discussed with the patient the possible need for surgical intervention if necessary Admitting diagnosis: Pelvic infection, sepsis Ailyn Wadsworth MD Dec 20, 2016 08:45
[2016-12-20] MEDS: SODIUM CHLORIDE 0.9% FLUSH 10 ML FLUSH IV FLUSH SCH ×2 (09:00→21:00)
[2016-12-20] MEDS: DOCUSATE SODIUM 50 MG/SENNA 8.6 MG TAB PO SCH ×2 (09:34→21:43)
[2016-12-20 12:00] VITALS: BP 115/81; PULSE 101; RESP 18; TEMP 99.5; O2SAT 95
[2016-12-20] MEDS ORDERED: POTASSIUM CHLORIDE 20 MEQ CONTROLLED RELEASE TAB PO ONE (12:15)
--- NOTE | 2016-12-20 12:27 | HHI.PR ---
Subjective Remarks Decreased pelvic pain since admission. Fever has improved. Objective Vitals Vital Signs Date Time Temp Pulse Resp B/P Pulse Ox O2 Delivery O2 Flow Rate FiO2 12/20/16 08:00 98.5 100 17 118/72 95 12/20/16 01:32 97.3 74 19 108/67 98 12/19/16 21:17 100.9 105 20 98 Room Air 12/19/16 20:24 98 Room Air 12/19/16 20:10 103.0 123 20 157/90 98 Room Air 12/19/16 19:46 101.3 127 18 123/84 96 Room Air 12/19/16 12/19/16 12/20/16 15:00 23:00 07:00 Intake Total 300 ml 200 ml Balance 300 ml 200 ml Intake Oral 300 ml IV Total 200 ml Result Diagram: 12/20/16 0615 12/20/16 0615 Imaging Last Impressions Pelvis Ultrasound 12/19/16 2249 Signed Impressions: Service Date/Time: Tuesday, December 20, 2016 00:09 - CONCLUSION: 1. Significant amount of free fluid in the pelvis. 2. Cystic lesion in the cul-de-sac measuring up to 3.6 cm containing internal septa. 3. Low-density lesion without increased flow on color Doppler, probably cystic, in the left adnexa, separate from the ovary, measuring 6.2 x 4.6 cm. Geovanny Bolanos MD Chest X-Ray 12/19/162011 Signed Impressions: Service Date/Time: Monday, December 19, 2016 20:09 - CONCLUSION: Low lung volumes with mild left lower lung zone atelectasis. Arturo Maldonado MD Abdomen/Pelvis CT 12/19/162011 Signed Impressions: Service Date/Time: Monday, December 19, 2016 21:45 - CONCLUSION: 1. Heterogeneous enlarged left ovary with severe surrounding inflammatory change. Differential diagnosis includes ovarian torsion and infection with tubo- ovarian abscess. This finding could be further evaluated with pelvic ultrasound. 2. Diffuse small bowel distention without transition point likely representing ileus. 3. Hepatic steatosis. 4. Small amount of ascites. Arturo Maldonado MD Objective Remarks GENERAL: This is a well-nourished, well-developed patient, in no apparent distress. CARDIOVASCULAR: Regular rate and rhythm without murmurs, gallops, or rubs. RESPIRATORY: Clear to auscultation. Breath sounds equal bilaterally. No wheezes , rales, or rhonchi. GASTROINTESTINAL: Abdomen soft, non-tender, nondistended. Normal active bowel sounds MUSCULOSKELETAL: Extremities without clubbing, cyanosis, or edema. NEURO: Alert & Oriented x4 to person, place, time, situation. Moves all ext x4 A/P Problem List: (1) Tubo-ovarian abscess Status: Acute Plan: - Left, tubo-ovarian abscess - comgmt with Gynecology - CT abd/pelvis (12/19/16) 1. Heterogeneous enlarged left ovary with severe surrounding inflammatory change. Differential diagnosis includes ovarian torsion and infection with tubo- ovarian abscess. This finding could be further evaluated with pelvic ultrasound. 2. Diffuse small bowel distention without transition point likely representing ileus. 3. Hepatic steatosis. 4. Small amount of ascites. - Pelvic US (12/20/16) 1. Significant amount of free fluid in the pelvis. 2. Cystic lesion in the cul- de-sac measuring up to 3.6 cm containing internal septa. 3. Low-density lesion without increased flow on color Doppler, probably cystic, in the left adnexa, separate from the ovary, measuring 6.2 x 4.6 cm. - Pt received Rocephin & doxycycline in the ER. - Rocephin changed to Unasyn. - Change Unasyn to Cefoxitin 2g IV q6h - doxycycline 100mg IV q12h (12/19 - present) - Case d/w IR, per IR literature does NOT support percutaneous drainage. - will continue IV treatment and hopefully pt will respond & will be able to avoid surgical intervention - will d/w DEPLOYMENT SPECIALIST - DVT prophylaxis Christian Lopes DO Dec 20, 2016 12:27
[2016-12-20] MEDS: DOXYCYCLINE INJ 100 MG in SODIUM CHLORIDE 0.9% INJ 100 ML IV SCH (12:45)
[2016-12-20] MEDS: 1/2 NS + KCL 20 MEQ INJ 1,000 ML IV SCH (14:00)
[2016-12-20] MEDS: ceFOXitin INJ 2 GM in SODIUM CHLORIDE 0.9% INJ 100 ML IV SCH ×2 (14:00→20:06)
[2016-12-20 16:00] VITALS: BP 94/69; PULSE 104; RESP 16; TEMP 98.6; O2SAT 94
[2016-12-20] MEDS: SIMETHICONE 125 MG CHEWABLE TAB PO SCH ×2 (17:09→21:43)
[2016-12-20] MEDS: PANTOPRAZOLE SODIUM 40 MG VIAL IV PUSH SCH (17:09)
[2016-12-20 20:00] VITALS: BP 106/40; PULSE 102; RESP 18; TEMP 99.8; O2SAT 96
[2016-12-21] VITALS: BP 130/73; PULSE 104; RESP 18; TEMP 98.6; O2SAT 93
[2016-12-21] MEDS: 1/2 NS + KCL 20 MEQ INJ 1,000 ML IV SCH ×2 (00:21→16:15)
[2016-12-21] MEDS: DOXYCYCLINE INJ 100 MG in SODIUM CHLORIDE 0.9% INJ 100 ML IV SCH ×2 (00:21→11:44)
[2016-12-21] MEDS: ceFOXitin INJ 2 GM in SODIUM CHLORIDE 0.9% INJ 100 ML IV SCH ×4 (02:03→22:42)
[2016-12-21] MEDS: SIMETHICONE 125 MG CHEWABLE TAB PO SCH ×3 (05:06→22:44)
[2016-12-21 05:11] LABS: AUTOMATED NEUTROPHIL # 10.9 TH/MM3 (1.8-7.7); BASOPHIL % 0.3 % (0.0-2.0); EOSINOPHIL # 0.1 TH/MM3 (0-0.4); HEMATOCRIT 28.6 % (35.0-46.0); HEMO FLAGS DIFF FINAL; LYMPH % 14.5 % (9.0-44.0); MEAN CELL VOLUME 91.9 FL (80.0-100.0); MEAN CORPUSCULAR HEMOGLOBIN 31.5 PG (27.0-34.0); MEAN CORPUSCULAR HGB CONC 34.2 % (32.0-36.0); MONO % 6.7 % (0.0-8.0); NEUT % 77.5 % (16.0-70.0); PLATELET COUNT 376 TH/MM3 (150-450); RED BLOOD COUNT 3.12 MIL/MM3 (4.00-5.30); RED CELL DISTRIBUTION WIDTH 14.3 % (11.6-17.2); WHITE BLOOD COUNT 14.1 TH/MM3 (4.0-11.0)
[2016-12-21 05:33] LABS: BICARBONATE 26.9 MEQ/L (21.0-32.0); MAGNESIUM 2.4 MG/DL (1.5-2.5); POTASSIUM 3.8 MEQ/L (3.5-5.1)
[2016-12-21] MEDS: HYDROmorphone HCL PF 1 MG/ML VIAL IV PRN ×3 (07:11→22:45)
[2016-12-21 08:00] VITALS: BP 127/78; PULSE 88; RESP 17; TEMP 97.3; O2SAT 94
[2016-12-21] MEDS: DOCUSATE SODIUM 50 MG/SENNA 8.6 MG TAB PO SCH ×2 (08:34→21:00)
[2016-12-21] MEDS: SODIUM CHLORIDE 0.9% FLUSH 10 ML FLUSH IV FLUSH SCH ×2 (08:34→22:43)
--- NOTE | 2016-12-21 08:49 | HHI.PR ---
Subjective Remarks [employer] progress note,, afebrile for 24 hours Hospital day 1-05/10 IV antibiotic day 1-05/10 Unasyn and doxycycline S-patient feeling quite a bit better less pain all day yesterday pain decreased this morning was increased somewhat she had a pain shot. but overall quite a bit better than just prior to admission O- patient's abdomen is much less tender than on admission there is no rebound tenderness and only minimal tenderness to direct palpation over the left lower quadrant A- tubo-ovarian abscess on the left was 6 x 4 cm , responding well to IV antibiotics with decrease in pain, fever, and white count was down to 14,000 today P-would recommend another 24 hours of IV antibiotic therapy and if afebrile done at time and continued improvement with discharge home at that point on doxycycline 100 mg by mouth twice a day for 2 weeks Objective Vital Signs Date Time Temp Pulse Resp B/P Pulse Ox O2 Delivery O2 Flow Rate FiO2 12/21/16 00:00 98.6 104 18 130/73 93 12/20/16 20:00 99.8 102 18 106/40 96 12/20/16 16:00 98.6 104 16 94/69 94 12/20/16 12:00 99.5 101 18 115/81 95 I/O 12/20/16 12/20/16 12/20/16 12/21/16 12/21/16 12/21/16 07:00 15:00 23:00 07:00 15:00 23:00 Intake Total 200 ml 882 ml 480 ml 1350 ml Balance 200 ml 882 ml 480 ml 1350 ml Intake Oral 0 ml 480 ml IV Total 200 ml 882 ml 1350 ml # Voids 4 2 2 # Bowel Movements 4 0 0 Result Diagram: 12/21/16 0433 12/21/16 0433 Sanket Carson II, MD Dec 21, 2016 08:49
[2016-12-21 12:00] VITALS: BP 133/75; PULSE 86; RESP 17; TEMP 95.3; O2SAT 95
--- NOTE | 2016-12-21 12:31 | HHI.PR ---
Subjective Remarks Pt had a BM this morning Her abdomen feels less distended and overall she feels better today Pt has been walking in the halls Objective Vitals Vital Signs Date Time Temp Pulse Resp B/P Pulse Ox O2 Delivery O2 Flow Rate FiO2 12/21/16 08:00 97.3 88 17 127/78 94 12/21/16 00:00 98.6 104 18 130/73 93 12/20/16 20:00 99.8 102 18 106/40 96 12/20/16 16:00 98.6 104 16 94/69 94 12/20/16 12/20/16 12/21/16 14:59 22:59 06:59 Intake Total 882 ml 1830 ml Balance 882 ml 1830 ml Intake Oral 0 ml 480 ml IV Total 882 ml 1350 ml # Voids 4 4 # Bowel Movements 4 0 Result Diagram: 12/21/16 0433 12/21/16 0433 Other Results Laboratory Tests Test 12/19/16 12/19/16 12/20/16 12/20/16 20:30 21:00 00:45 01:05 Sodium Level 133 MEQ/L Potassium Level 3.0 MEQ/L Chloride Level 97 MEQ/L Carbon Dioxide Level 24.9 MEQ/L Anion Gap 11 MEQ/L Blood Urea Nitrogen 10 MG/DL Creatinine 1.41 MG/DL Estimat Glomerular Filtration 43 ML/MIN Rate Random Glucose 108 MG/DL Lactic Acid Level 2.1 mmol/L 1.6 mmol/L Calcium Level 8.9 MG/DL Magnesium Level 2.1 MG/DL Total Bilirubin 1.2 MG/DL Aspartate Amino Transf 11 U/L (AST/SGOT) Alanine Aminotransferase 12 U/L (ALT/SGPT) Alkaline Phosphatase 72 U/L C-Reactive Protein 36.00 MG/DL Total Protein 9.1 GM/DL Albumin 3.5 GM/DL Lipase 49 U/L White Blood Count 25.9 TH/MM3 Red Blood Count 4.04 MIL/MM3 Hemoglobin 12.2 GM/DL Hematocrit 36.9 % Mean Corpuscular Volume 91.5 FL Mean Corpuscular Hemoglobin 30.3 PG Mean Corpuscular Hemoglobin 33.1 % Concent Red Cell Distribution Width 14.2 % Platelet Count 488 TH/MM3 Mean Platelet Volume 8.2 FL Neutrophils (%) (Auto) 82.4 % Lymphocytes (%) (Auto) 11.3 % Monocytes (%) (Auto) 5.7 % Eosinophils (%) (Auto) 0.1 % Basophils (%) (Auto) 0.5 % Neutrophils # (Auto) 21.4 TH/MM3 Lymphocytes # (Auto) 2.9 TH/MM3 Monocytes # (Auto) 1.5 TH/MM3 Eosinophils # (Auto) 0.0 TH/MM3 Basophils # (Auto) 0.1 TH/MM3 CBC Comment DIFF FINAL Differential Comment Clue Cells (Wet Prep) NONE SEEN Vaginal Trichomonas (Wet Prep) NONE SEEN Vaginal Yeast (Wet Prep) NONE SEEN Chlamydia trachomatis DNA NOT DETECTED (PCR) Neisseria gonorrhoeae DNA DETECTED (PCR) Urine Color YELLOW Urine Turbidity CLEAR Urine pH 5.5 Urine Specific [place] GREATER THAN 1.050 Urine Protein 30 mg/dL Urine Glucose (UA) NEG mg/dL Urine Ketones NEG mg/dL Urine Occult Blood MOD Urine Nitrite NEG Urine Bilirubin NEG Urine Urobilinogen LESS THAN 2.0 MG/DL Urine Leukocyte Esterase SMALL Urine RBC 16 /hpf Urine WBC 31 /hpf Urine Squamous Epithelial 1 /hpf Cells Urine Bacteria RARE /hpf Microscopic Urinalysis Comment CULTURE INDICATED Test 12/20/16 12/21/16 06:15 04:33 White Blood Count 22.0 TH/MM3 14.1 TH/MM3 Red Blood Count 3.45 MIL/MM3 3.12 MIL/MM3 Hemoglobin 10.6 GM/DL 9.8 GM/DL Hematocrit 31.5 % 28.6 % Mean Corpuscular Volume 91.3 FL 91.9 FL Mean Corpuscular Hemoglobin 30.9 PG 31.5 PG Mean Corpuscular Hemoglobin 33.8 % 34.2 % Concent Red Cell Distribution Width 14.2 % 14.3 % Platelet Count 378 TH/MM3 376 TH/MM3 Mean Platelet Volume 8.8 FL 8.4 FL Neutrophils (%) (Auto) 83.8 % 77.5 % Lymphocytes (%) (Auto) 8.1 % 14.5 % Monocytes (%) (Auto) 7.5 % 6.7 % Eosinophils (%) (Auto) 0.1 % 1.0 % Basophils (%) (Auto) 0.5 % 0.3 % Neutrophils # (Auto) 18.4 TH/MM3 10.9 TH/MM3 Lymphocytes # (Auto) 1.8 TH/MM3 2.0 TH/MM3 Monocytes # (Auto) 1.6 TH/MM3 0.9 TH/MM3 Eosinophils # (Auto) 0.0 TH/MM3 0.1 TH/MM3 Basophils # (Auto) 0.1 TH/MM3 0.0 TH/MM3 CBC Comment DIFF FINAL DIFF FINAL Differential Comment Sodium Level 135 MEQ/L 140 MEQ/L Potassium Level 3.3 MEQ/L 3.8 MEQ/L Chloride Level 101 MEQ/L 105 MEQ/L Carbon Dioxide Level 26.2 MEQ/L 26.9 MEQ/L Anion Gap 8 MEQ/L 8 MEQ/L Blood Urea Nitrogen 10 MG/DL 8 MG/DL Creatinine 1.01 MG/DL 1.08 MG/DL Estimat Glomerular Filtration 63 ML/MIN 58 ML/MIN Rate Random Glucose 96 MG/DL 81 MG/DL Calcium Level 8.4 MG/DL 8.7 MG/DL Total Bilirubin 0.7 MG/DL Aspartate Amino Transf 10 U/L (AST/SGOT) Alanine Aminotransferase 9 U/L (ALT/SGPT) Alkaline Phosphatase 67 U/L Total Protein 7.9 GM/DL Albumin 2.9 GM/DL Magnesium Level 2.4 MG/DL Imaging Last Impressions Pelvis Ultrasound 12/19/162248 Signed Impressions: Service Date/Time: Tuesday, December 20, 2016 00:09 - CONCLUSION: 1. Significant amount of free fluid in the pelvis. 2. Cystic lesion in the cul-de-sac measuring up to 3.6 cm containing internal septa. 3. Low-density lesion without increased flow on color Doppler, probably cystic, in the left adnexa, separate from the ovary, measuring 6.2 x 4.6 cm. Geovanny Bolanos MD Chest X-Ray 12/19/162011 Signed Impressions: Service Date/Time: Monday, December 19, 2016 20:09 - CONCLUSION: Low lung volumes with mild left lower lung zone atelectasis. Arturo Maldonado MD Abdomen/Pelvis CT 12/19/162011 Signed Impressions: Service Date/Time: Monday, December 19, 2016 21:45 - CONCLUSION: 1. Heterogeneous enlarged left ovary with severe surrounding inflammatory change. Differential diagnosis includes ovarian torsion and infection with tubo- ovarian abscess. This finding could be further evaluated with pelvic ultrasound. 2. Diffuse small bowel distention without transition point likely representing ileus. 3. Hepatic steatosis. 4. Small amount of ascites. Arturo Maldonado MD Objective Remarks General: NAD, AAOx3 Chest: CTA Cardiac: Regular Abd: +BS, soft mildly distended, mildly tender on the left side of the abdomen Ext: No edema A/P Problem List: (1) Tubo-ovarian abscess Status: Acute Plan: - Pt is a 31 y/o female who has been symptomatic for greater than a week at home with fever and abdominal pain and was found to have PID/tubo-ovarian abscess. - comgmt with Gynecology - CT abd/pelvis (12/19/16) 1. Heterogeneous enlarged left ovary with severe surrounding inflammatory change. Differential diagnosis includes ovarian torsion and infection with tubo-ovarian abscess. This finding could be further evaluated with pelvic ultrasound. 2. Diffuse small bowel distention without transition point likely representing ileus. 3. Hepatic steatosis. 4. Small amount of ascites. - Pelvic US (12/20/16) 1. Significant amount of free fluid in the pelvis. 2. Cystic lesion in the cul-de-sac measuring up to 3.6 cm containing internal septa. 3. Low-density lesion without increased flow on color Doppler, probably cystic, in the left adnexa, separate from the ovary, measuring 6.2 x 4.6 cm. - Pt received Rocephin & doxycycline in the ER. - Rocephin changed to Unasyn. - Unasyn changed to Cefoxitin 2g IV q6h on 12/20 - doxycycline 100mg IV q12h (12/19 - present) - Pt found to have gonorrhea - Case d/w IR, per IR literature does NOT support percutaneous drainage. - will continue IV treatment and hopefully pt will respond & will be able to avoid surgical intervention - Pt with noted ileus on CT and with decreased bowel sounds and abd distention and was continued on NPO status on 12/20 - Simethicone 125mg Q8H - PPI - DVT prophylaxis Assessment and Plan Patient examined. Assessment and plan formulated with Yana Caicedo PA-C. I agree with the above. Yana Caicedo Dec 21, 2016 12:31 Christian Lopes DO Dec 22, 2016 13:23
[2016-12-21 16:00] VITALS: BP 130/89; PULSE 91; RESP 17; TEMP 97.1; O2SAT 98
[2016-12-21] MEDS: PANTOPRAZOLE SODIUM 40 MG VIAL IV PUSH SCH (16:14)
[2016-12-21 20:17] VITALS: BP 116/86; PULSE 80; RESP 18; TEMP 97.2; O2SAT 100
[2016-12-21] MEDS: ONDANSETRON HCL 4 MG/2 ML VIAL IVP PRN (22:44)
[2016-12-21 23:57] VITALS: BP 107/51; PULSE 78; RESP 18; TEMP 97; O2SAT 96
[2016-12-22] MEDS: DOXYCYCLINE INJ 100 MG in SODIUM CHLORIDE 0.9% INJ 100 ML IV SCH ×2 (00:41→11:18)
[2016-12-22] MEDS: 1/2 NS + KCL 20 MEQ INJ 1,000 ML IV SCH ×2 (00:55→11:19)
[2016-12-22] MEDS: ceFOXitin INJ 2 GM in SODIUM CHLORIDE 0.9% INJ 100 ML IV SCH ×3 (02:00→14:08)
[2016-12-22] MEDS: HYDROmorphone HCL PF 1 MG/ML VIAL IV PRN (04:54)
[2016-12-22] MEDS: SIMETHICONE 125 MG CHEWABLE TAB PO SCH ×2 (04:54→14:07)
[2016-12-22 08:00] VITALS: BP 110/71; PULSE 82; RESP 18; TEMP 97.2; O2SAT 96
[2016-12-22 08:09] LABS: AUTOMATED NEUTROPHIL # 5.5 TH/MM3 (1.8-7.7); BASOPHIL % 0.4 % (0.0-2.0); EOSINOPHIL # 0.2 TH/MM3 (0-0.4); EOSINOPHIL % 3.1 % (0.0-4.0); HEMATOCRIT 26.6 % (35.0-46.0); HEMO FLAGS DIFF FINAL; LYMPH % 17.8 % (9.0-44.0); LYMPHOCYTE # 1.4 TH/MM3 (1.0-4.8); MEAN CELL VOLUME 92.5 FL (80.0-100.0); MEAN CORPUSCULAR HEMOGLOBIN 31.5 PG (27.0-34.0); MEAN CORPUSCULAR HGB CONC 34.1 % (32.0-36.0); MONO % 7.9 % (0.0-8.0); NEUT % 70.8 % (16.0-70.0); PLATELET COUNT 393 TH/MM3 (150-450); RED BLOOD COUNT 2.88 MIL/MM3 (4.00-5.30); RED CELL DISTRIBUTION WIDTH 14.3 % (11.6-17.2); WHITE BLOOD COUNT 7.8 TH/MM3 (4.0-11.0)
[2016-12-22] MEDS: DOCUSATE SODIUM 50 MG/SENNA 8.6 MG TAB PO SCH (08:20)
[2016-12-22] MEDS: SODIUM CHLORIDE 0.9% FLUSH 10 ML FLUSH IV FLUSH SCH (08:20)
[2016-12-22 08:34] LABS: BICARBONATE 28.5 MEQ/L (21.0-32.0); MAGNESIUM 2.4 MG/DL (1.5-2.5); POTASSIUM 3.8 MEQ/L (3.5-5.1)
[2016-12-22] MEDS ORDERED: DOXY100C PO (09:44)
--- NOTE | 2016-12-22 10:10 | HHI.PR ---
Subjective Remarks No acute issues overnight. Vital signs stable, patient remains afebrile. She has been afebrile for greater than 24 hours. Her pain is improving. She has been ambulating without difficulty. She continues to struggle to tolerate solid foods, but is currently on a liquid diet. She didn't have a bowel movement. She denies any vaginal discharge. She is having some spotting. She denies any fever, chills, nausea, leg pain, or shortness of breath. Objective Vital Signs Date Time Temp Pulse Resp B/P Pulse Ox O2 Delivery O2 Flow Rate FiO2 12/22/16 08:00 97.2 82 18 110/71 96 12/21/16 23:57 97.0 78 18 107/51 96 12/21/16 20:17 97.2 80 18 116/86 100 12/21/16 16:00 97.1 91 17 130/89 98 12/21/16 12:00 95.3 86 17 133/75 95 I/O 12/21/16 12/21/16 12/21/16 12/22/16 12/22/16 12/22/16 07:00 15:00 23:00 07:00 15:00 23:00 Intake Total 1350 ml 723 ml 380 ml 1169 ml Balance 1350 ml 723 ml 380 ml 1169 ml Intake Oral 0 ml 380 ml 480 ml IV Total 1350 ml 723 ml 689 ml # Voids 2 3 2 2 # Bowel Movements 0 3 Result Diagram: 12/22/16 0639 12/22/16 0639 Imaging Last Impressions Pelvis Ultrasound 12/19/16 2249 Signed Impressions: Service Date/Time: Tuesday, December 20, 2016 00:09 - CONCLUSION: 1. Significant amount of free fluid in the pelvis. 2. Cystic lesion in the cul-de-sac measuring up to 3.6 cm containing internal septa. 3. Low-density lesion without increased flow on color Doppler, probably cystic, in the left adnexa, separate from the ovary, measuring 6.2 x 4.6 cm. Geovanny Bolanos MD Chest X-Ray 12/19/162011 Signed Impressions: Service Date/Time: Monday, December 19, 2016 20:09 - CONCLUSION: Low lung volumes with mild left lower lung zone atelectasis. Arturo Maldonado MD Abdomen/Pelvis CT 12/19/162011 Signed Impressions: Service Date/Time: Monday, December 19, 2016 21:45 - CONCLUSION: 1. Heterogeneous enlarged left ovary with severe surrounding inflammatory change. Differential diagnosis includes ovarian torsion and infection with tubo- ovarian abscess. This finding could be further evaluated with pelvic ultrasound. 2. Diffuse small bowel distention without transition point likely representing ileus. 3. Hepatic steatosis. 4. Small amount of ascites. Arturo Maldonado MD Objective Remarks GENERAL: Well-nourished, well-developed female. In no acute distress. SKIN: Warm and dry. HEAD: Normocephalic. EYES: No scleral icterus. No injection or drainage. NECK: Supple, trachea midline. No JVD or lymphadenopathy. CARDIOVASCULAR: Regular rate and rhythm with S3 no gallops or rubs. RESPIRATORY: Breath sounds equal bilaterally. No accessory muscle use. GASTROINTESTINAL: Abdomen soft, tender to palpation in LLQ, nondistended. MUSCULOSKELETAL: No cyanosis, or edema. BACK: Nontender without obvious deformity. Assessment and Plan Assessment and Plan 31-year-old nulliparous admitted for PID/TOA secondary to gonorrhea. - Afebrile >24 hours - Leukocytosis has resolved, trending down from 14.1-7.8 - Symptoms improving - Stable from gynecologic standpoint. Okay to discharge home on doxycycline 100 mg PO Q12H 10 days. Follow-up with Dr. Rothman in 2 weeks. Repeat pelvic US prior to follow-up appointment in 2 weeks. No intercourse x 2 weeks. Partner needs treatment. sdw Dr. Sloan R1 dw Noelle Barton MD, R3 Dec 22, 2016 10:10
[2016-12-22 12:00] VITALS: BP 136/83; PULSE 86; RESP 18; TEMP 96.9; O2SAT 95
--- NOTE | 2016-12-22 13:12 | HHI.DS ---
Discharge Summary Admission Date Dec 19, 2016 at 23:17 Discharge Date: Dec 22, 2016 Admitting Diagnosis Pelvic infection, sepsis (1) Tubo-ovarian abscess Diagnosis: [facility] Dr. Ailyn Wadsworth, Gynecology Brief History The patient is a 31 year old female who presents to the [facility] emergency department with a history of abdominal pain that she reports began 2 weeks ago and was persistent for a week and then seemed to go away up until yesterday when it recurred. She reports that last week she was seen at [facility] urgent care chula. No laboratory studies were done, however the patient was treated with nausea medication. She reports that she did restart this yesterday. She reports that the pain as an aching sensation in the left lower quadrant of the abdomen. She reports that it has been associated with nausea for the last 2 weeks and vomiting that began yesterday. She reports that she's also had intermittent diarrhea for the last 2 weeks. She reports that she had 1 episode of vomiting yesterday and one episode of vomiting today. She reports that she's had diarrhea approximately 4 times per day. She reports that prior to this beginning she did have a clear to milky vaginal discharge that lasted for a day. She denies having a pelvic examination done at the other facility. She reports that she has had an intermittent fever since yesterday. She has not actually checked her temperature and is unsure how high it was right on arrival, however on arrival back to emergency department that her temp is 103 orally. She denies having any dysuria, urinary frequency, urinary urgency. On review of systems, the patient denies any recent cough, congestion, neck pain, chest pain, shortness of breath, or neurologic symptoms. The patient reports that multiple coworkers have been sick with a "stomach bug,". She denies any foreign travel, antibiotic use over the last 3 months, or unusual food intake. She denies having any blood in her stool or mucus in her stool. In er had CT abdomen suggesting pelvic infection with possible abscess and does have increased WBC count will admit for IV antibiotics and RESEARCH NURSE evaluation . Obtain ultrasound. LMP: 2 weeks ago. CBC/BMP: 12/22/16 0639 12/22/16 0639 Significant Findings Laboratory Tests Test 12/19/16 12/20/16 12/20/16 12/21/16 20:30 00:45 06:15 04:33 Sodium Level 133 MEQ/L 135 MEQ/L (136-145) (136-145) Potassium Level 3.0 MEQ/L 3.3 MEQ/L (3.5-5.1) (3.5-5.1) Chloride Level 97 MEQ/L (98-107) Creatinine 1.41 MG/DL 1.01 MG/DL 1.08 MG/DL (0.50-1.00) (0.50-1.00) (0.50-1.00) Estimat Glomerular Filtration 43 ML/MIN (>89) 63 ML/MIN (>89) 58 ML/MIN (>89) Rate Random Glucose 108 MG/DL (74-106) Lactic Acid Level 2.1 mmol/L (0.4-2.0) Total Bilirubin 1.2 MG/DL (0.2-1.0) Aspartate Amino Transf 11 U/L (15-37) 10 U/L (15-37) (AST/SGOT) C-Reactive Protein 36.00 MG/DL (0.00-0.30) Total Protein 9.1 GM/DL (6.4-8.2) Lipase 49 U/L (73-393) White Blood Count 25.9 TH/MM3 22.0 TH/MM3 14.1 TH/MM3 (4.0-11.0) (4.0-11.0) (4.0-11.0) Platelet Count 488 TH/MM3 (150-450) Neutrophils (%) (Auto) 82.4 % 83.8 % 77.5 % (16.0-70.0) (16.0-70.0) (16.0-70.0) Neutrophils # (Auto) 21.4 TH/MM3 18.4 TH/MM3 10.9 TH/MM3 (1.8-7.7) (1.8-7.7) (1.8-7.7) Monocytes # (Auto) 1.5 TH/MM3 1.6 TH/MM3 (0-0.9) (0-0.9) Urine Specific [place] GREATER THAN 1.050 (1.002-1.035) Urine Protein 30 mg/dL (NEG-TRACE) Urine Occult Blood MOD (NEG) Urine Leukocyte Esterase SMALL (NEG) Urine RBC 16 /hpf (0-3) Urine WBC 31 /hpf (0-5) Urine Bacteria RARE /hpf (NONE) Red Blood Count 3.45 MIL/MM3 3.12 MIL/MM3 (4.00-5.30) (4.00-5.30) Hemoglobin 10.6 GM/DL 9.8 GM/DL (11.6-15.3) (11.6-15.3) Hematocrit 31.5 % 28.6 % (35.0-46.0) (35.0-46.0) Lymphocytes (%) (Auto) 8.1 % (9.0-44.0) Calcium Level 8.4 MG/DL (8.5-10.1) Alanine Aminotransferase 9 U/L (10-53) (ALT/SGPT) Albumin 2.9 GM/DL (3.4-5.0) Test 12/22/16 06:39 Red Blood Count 2.88 MIL/MM3 (4.00-5.30) Hemoglobin 9.1 GM/DL (11.6-15.3) Hematocrit 26.6 % (35.0-46.0) Neutrophils (%) (Auto) 70.8 % (16.0-70.0) Estimat Glomerular Filtration 76 ML/MIN (>89) Rate Calcium Level 8.2 MG/DL (8.5-10.1) Imaging Last Impressions Pelvis Ultrasound 12/19/169 Signed Impressions: Service Date/Time: Tuesday, December 20, 2016 00:09 - CONCLUSION: 1. Significant amount of free fluid in the pelvis. 2. Cystic lesion in the cul-de-sac measuring up to 3.6 cm containing internal septa. 3. Low-density lesion without increased flow on color Doppler, probably cystic, in the left adnexa, separate from the ovary, measuring 6.2 x 4.6 cm. Geovanny Bolanos MD Chest X-Ray 12/19/162011 Signed Impressions: Service Date/Time: Monday, December 19, 2016 20:09 - CONCLUSION: Low lung volumes with mild left lower lung zone atelectasis. Arturo Maldonado MD Abdomen/Pelvis CT 12/19/162011 Signed Impressions: Service Date/Time: Monday, December 19, 2016 21:45 - CONCLUSION: 1. Heterogeneous enlarged left ovary with severe surrounding inflammatory change. Differential diagnosis includes ovarian torsion and infection with tubo- ovarian abscess. This finding could be further evaluated with pelvic ultrasound. 2. Diffuse small bowel distention without transition point likely representing ileus. 3. Hepatic steatosis. 4. Small amount of ascites. Arturo Maldonado MD PE at Discharge General: NAD, AAOx3 Chest: CTA Cardiac: Regular Abd: +BS, soft mildly distended, mildly tender on the left side of the abdomen Ext: No edema Hospital Course (1) Tubo-ovarian abscess Status: Acute Plan: - Pt is a 31 y/o female who has been symptomatic for greater than a week at home with fever and abdominal pain and was found to have PID/tubo-ovarian abscess. - comgmt with Gynecology - CT abd/pelvis (12/19/16) 1. Heterogeneous enlarged left ovary with severe surrounding inflammatory change. Differential diagnosis includes ovarian torsion and infection with tubo-ovarian abscess. This finding could be further evaluated with pelvic ultrasound. 2. Diffuse small bowel distention without transition point likely representing ileus. 3. Hepatic steatosis. 4. Small amount of ascites. - Pelvic US (12/20/16) 1. Significant amount of free fluid in the pelvis. 2. Cystic lesion in the cul-de-sac measuring up to 3.6 cm containing internal septa. 3. Low-density lesion without increased flow on color Doppler, probably cystic, in the left adnexa, separate from the ovary, measuring 6.2 x 4.6 cm. - Pt found to have gonorrhea - Pt received Rocephin & doxycycline in the ER. - Rocephin changed to Unasyn. - Unasyn changed to Cefoxitin 2g IV q6h on 12/20 - 12/21 - doxycycline 100mg IV q12h (12/19 - present). Upon discharge will continue doxycycline for 10 days course - Case d/w IR, per IR literature does NOT support percutaneous drainage. - case d/w Gynecology, Dr. Keenan, (12/21/16) - Pt will f/u with gynecology outpt - pt may have tubular scaring d/t gonorrhea infection & potentially might require IVF for - Pt cleared for discharge by gynecology - f/u with Dr. Rothman in 2 weeks - repeat pelvic US prior to f/u in 2 weeks, prescription written - NO intercourse x 2 weeks - partners need treatment - ileus resolved. Pt with good bowel sounds and tolerating diet Stable from gynecologic standpoint. Okay to discharge home on doxycycline 100 mg PO Q12H 10 days. Follow-up with Dr. Rothman in 2 weeks. Repeat pelvic US prior to follow-up appointment in 2 weeks. No intercourse x 2 weeks. Partner needs treatment. Pt Condition on Discharge: Stable Discharge Instructions DIET: Follow Instructions for: As Tolerated, No Restrictions Activities you can perform: Regular-No Restrictions Follow up Referrals: [facility] - 2 Weeks with Oralia Rothman MD New Medications: Doxycycline Hyclate (Doxycycline Hyclate) 100 Mg Cap 100 MG PO BID Infection #20 Ref 0 CAP Christian Lopes DO Dec 22, 2016 13:12
--- NOTE | 2016-12-22 13:23 | HHI.DCPOC ---
Discharge Care Plan Diagnosis: (1) Tubo-ovarian abscess Goals to Promote Your Health * To prevent worsening of your condition and complications * To maintain your health at the optimal level Directions to Meet Your Goals Take your medications as prescribed Follow your dietary instruction Follow activity as directed Keep your appointments as scheduled Take your immunizations and boosters as scheduled If your symptoms worsen call your PCP, if no PCP go to Urgent Care Center or Emergency Room Smoking is Dangerous to Your Health. Avoid second hand smoke Call the 24-hour hour crisis hotline for domestic abuse at Christian Lopes DO Dec 22, 2016 13:23
[2016-12-22] MEDS ORDERED: HYDR-3533 PO (13:50)
[2016-12-22] MEDS: ONDANSETRON HCL 4 MG/2 ML VIAL IVP PRN (15:13)
== END 2016-12-22 16:09 | disposition home or self-care (01) | DRG 872 ==
LOC: NEPE 19:44 → NEDA 23:17 → N07A 12-20 01:15
PROVIDERS: ADMIT Hospitalist; ATTEND Hospitalist
DX: A41.9 Sepsis, unspecified organism (principal); K56.7 Ileus, unspecified; A54.24 Gonococcal female pelvic inflammatory disease
CPT/HCPCS: 71010; 74177; 76830; 76856; 80048; 80053; 81001; 83605; 83690; 83735; 84703; 85025; 86140; 87040; 87086; 87210; 87491; 87591; 96361; 96365; 96375; C9113; J0295; J0694; J0696; J1170; J2405; J7030; Q9967

== ENCOUNTER 2017-05-31 18:49 | Emergency (ER) | payer OTHER ==
[~2017-05-31] VITALS: Ht 172.7 cm; Wt 104.5 kg
[~2017-05-31 18:49] MED LIST changes: -AMOX875T PO; +DOXY100C PO; +HYDR-3533 PO; -IBUP800T23 PO
[2017-05-31 18:50] VITALS: BP 135/71; PULSE 90; RESP 14; TEMP 97.9; O2SAT 98
--- NOTE | 2017-05-31 19:44 | RADRPT ---
EXAM DATE/TIME: 05/31/2017 19:14 [place] COMPARISON: No previous studies available for comparison. INDICATIONS : Chest and back pain. MEDICAL HISTORY : None. SURGICAL HISTORY : None. ENCOUNTER: Initial ACUITY: 1 day PAIN SCORE: 6/10 LOCATION: Bilateral chest FINDINGS: PA and lateral views of the chest demonstrate the lungs to be symmetrically aerated without evidence of mass, infiltrate or effusion. The cardiomediastinal contours are unremarkable. Osseous structure s are intact. CONCLUSION: 1. Minimal subsegmental basilar airspace disease. No effusion. No pneumothorax. Alexander Brewer MD on May 31, 2017 at 19:39 Board Certified Radiologist. This report was verified electronically.
[2017-05-31 21:04] LABS: AUTOMATED NEUTROPHIL # 3.5 TH/MM3 (1.8-7.7); BASOPHIL # 0.1 TH/MM3 (0-0.2); BASOPHIL % 0.9 % (0.0-2.0); EOSINOPHIL # 0.2 TH/MM3 (0-0.4); EOSINOPHIL % 2.3 % (0.0-4.0); HEMATOCRIT 29.4 % (35.0-46.0); HEMOGLOBIN 10.1 GM/DL (11.6-15.3); LYMPH % 42.2 % (9.0-44.0); LYMPHOCYTE # 3.2 TH/MM3 (1.0-4.8); MEAN CORPUSCULAR HEMOGLOBIN 30.9 PG (27.0-34.0); MEAN CORPUSCULAR HGB CONC 34.3 % (32.0-36.0); MEAN PLATELET VOLUME 7.6 FL (7.0-11.0); MONOCYTE # 0.6 TH/MM3 (0-0.9); NEUT % 46.6 % (16.0-70.0); PLATELET COUNT 375 TH/MM3 (150-450); RED BLOOD COUNT 3.26 MIL/MM3 (4.00-5.30); RED CELL DISTRIBUTION WIDTH 14.1 % (11.6-17.2); WHITE BLOOD COUNT 7.5 TH/MM3 (4.0-11.0)
[2017-05-31 21:07] LABS: INTERNATIONAL NORMALIZED RATIO 1.1 RATIO; PROTHROMBIN TIME - PATIENT 10.7 SEC (9.8-11.6)
[2017-05-31 21:13] LABS: BICARBONATE 29.4 MEQ/L (21.0-32.0); BLOOD UREA NITROGEN 8 MG/DL (7-18); CALCIUM 9.3 MG/DL (8.5-10.1); CHLORIDE 99 MEQ/L (98-107); CREATININE 0.69 MG/DL (0.50-1.00); GLOMERULAR FILTRATION RATE 97 ML/MIN (>89); GLUCOSE,RANDOM 92 MG/DL (74-106); MAGNESIUM 2.4 MG/DL (1.5-2.5); SODIUM (NA) 136 MEQ/L (136-145)
[2017-05-31 21:27] LABS: TROPONIN I LESS THAN 0.02 NG/ML (0.02-0.05)
--- NOTE | 2017-05-31 22:13 | EKG ---
Date Performed: 05/31/2017 Time Performed: 20:23:00 PTAGE: 32 years EKG: Sinus rhythm MODERATE T-WAVE ABNORMALITY ABNORMAL ECG PREVIOUS TRACING : 05/29/2012 19.31 Since previous tracing, no significant change noted DOCTOR: Isaias Marvin Interpretating Date/Time 05/31/2017 22:11:18
--- NOTE | 2017-05-31 22:30 | PD ---
Physical Exam Date Seen by Provider: May 31, 2017 Time Seen by Provider: 22:15 Narrative 32-year-old female presents to the emergency department for evaluation of midsternal chest pain and back pain for 3 days. She does report a history of pericarditis. She states the pain is constant. Current pain is 6/10. Data Data Last Documented VS Vital Signs Date Time Temp Pulse Resp B/P (MAP) Pulse Ox O2 Delivery O2 Flow Rate FiO2 05/31/17 18:50 97.9 90 14 135/71 (92) 98 Room Air Orders Orders Electrocardiogram (05/31/17 18:56) Basic Metabolic Panel (Bmp) (05/31/17 18:56) Ckmb (Isoenzyme) Profile (05/31/17 18:56) Complete Blood Count With Diff (05/31/17 18:56) Magnesium (Mg) (05/31/17 18:56) Prothrombin Time / Inr (Pt) (05/31/17 18:56) Act Partial Throm Time (Ptt) (05/31/17 18:56) Troponin I (05/31/17 18:56) Chest, Pa & Lat (05/31/17 18:56) Urinalysis - C+S If Indicated (05/31/17 18:56) Ed Urine Pregnancytest Poc (05/31/17 18:56) CKMB (05/31/17 20:30) CKMB% (05/31/17 20:30) Labs Laboratory Tests Test 05/31/17 20:30 White Blood Count 7.5 TH/MM3 Red Blood Count 3.26 MIL/MM3 Hemoglobin 10.1 GM/DL Hematocrit 29.4 % Mean Corpuscular Volume 90.0 FL Mean Corpuscular Hemoglobin 30.9 PG Mean Corpuscular Hemoglobin Concent 34.3 % Red Cell Distribution Width 14.1 % Platelet Count 375 TH/MM3 Mean Platelet Volume 7.6 FL Neutrophils (%) (Auto) 46.6 % Lymphocytes (%) (Auto) 42.2 % Monocytes (%) (Auto) 8.0 % Eosinophils (%) (Auto) 2.3 % Basophils (%) (Auto) 0.9 % Neutrophils # (Auto) 3.5 TH/MM3 Lymphocytes # (Auto) 3.2 TH/MM3 Monocytes # (Auto) 0.6 TH/MM3 Eosinophils # (Auto) 0.2 TH/MM3 Basophils # (Auto) 0.1 TH/MM3 CBC Comment DIFF FINAL Differential Comment Prothrombin Time 10.7 SEC Prothromb Time International Ratio 1.1 RATIO Activated Partial Thromboplast Time 34.7 SEC Blood Urea Nitrogen 8 MG/DL Creatinine 0.69 MG/DL Random Glucose 92 MG/DL Calcium Level 9.3 MG/DL Magnesium Level 2.4 MG/DL Sodium Level 136 MEQ/L Potassium Level 3.3 MEQ/L Chloride Level 99 MEQ/L Carbon Dioxide Level 29.4 MEQ/L Anion Gap 8 MEQ/L Estimat Glomerular Filtration Rate 97 ML/MIN Total Creatine Kinase 1129 U/L Creatine Kinase MB 1.6 NG/ML Creatine Kinase MB % 0.1 % Troponin I LESS THAN 0.02 NG/ML MDM Supervised Visit with KEILY: No Narrative Course 32-year-old female presents to the emergency department for evaluation of midsternal chest pain and back pain for 3 days. Patient is initially seen in triage. Workup is initiated. Patient did leave AGAINST MEDICAL ADVICE before she could be moved to medical bed. Diagnosis Primary Impression: Left against medical advice Additional Impression: Chest pain Qualified Codes: R07.9 - Chest pain, unspecified Scripts No Active Prescriptions or Reported Meds Disposition: 07 AGAINST MEDICAL ADVICE Shannan Cosby May 31, 2017 22:30
== END 2017-05-31 22:15 | disposition left against medical advice (07) ==
LOC: NED 18:49
DX: R07.9 Chest pain, unspecified (principal); R94.31 Abnormal electrocardiogram [ECG] [EKG]; Z53.20 Procedure and treatment not carried out because of patient's decision for unspecified reasons
CPT/HCPCS: 71046; 80048; 82550; 82552; 83735; 84484; 84703; 85025; 85610; 85730; 93005; 99285